=== PATIENT | female | born 1955 | race Caucasian/White ===

== ENCOUNTER 2020-11-03 23:18 | Observation (INO) | payer OTHER, SELFPAY ==
--- NOTE | 2020-11-03 23:30 | XRR_ITS ---
PROCEDURE INFORMATION: Exam: XR Chest Exam date and time: 11/03/2020 11:37 PM Age: 65 years old Clinical indication: Type not specified; Patient HX: Chest pain radiating to left shoulder x 3 days; Additional info: Cp TECHNIQUE: Imaging protocol: XR of the chest Views: 1 view. COMPARISON: No relevant prior studies available. FINDINGS: Lungs: Unremarkable. No consolidation. Pleural spaces: Unremarkable. No pleural effusion. No pneumothorax. Heart/Mediastinum: Mildly enlarged heart. Bones/joints: Degenerative changes of the spine seen. XR/XR chest 1V portable [id number] IMPRESSION: No acute findings.
--- NOTE | 2020-11-03 23:30 | ECG_ITS ---
[facility] Test Date: 2020-11-03 Pat Name: Lara Brown Department: Room: Gender: Female Clinical Staff Educator: : 1955 Requested By: Dieudonne Atwood Order Number: [id number] Pattie MD: Diego Martino M.D. Measurements Intervals [place] Rate: 71 P: 67 MT: 163 QRS: 73 QRSD: 91 T: 22 QT: 377 QTc: 410 Interpretive Statements SINUS RHYTHM POSSIBLE LEFT ATRIAL ENLARGEMENT [-0.1mV P WAVE IN V1/V2] NONSPECIFIC ST & T-WAVE ABNORMALITY No previous ECG available for comparison Electronically Signed On 11-04-2020 18:54:17 POLITICAL SCIENCE INSTRUCTOR by Diego Martino M.D. [id number]
[2020-11-03 23:32] VITALS: BP 163/99; PULSE 71; RESP 17; TEMP 36.6; O2SAT 96; BMI 33.0
--- NOTE | 2020-11-03 23:34 | PC.NURSE ---
EKG taken and given to ED physician
[2020-11-03 23:42] VITALS: PULSE 74; RESP 24; O2SAT 96
[2020-11-03 23:45] LABS: Basophils % 0.3 %; Eosinophils # 0.1 10^3/uL (0.0-0.8); Eosinophils % 1.5 %; Hematocrit 39.8 % (37.0-47.0); Hemoglobin 12.7 g/dL (11.5-15.3); Lymphocytes # 1.6 10^3/uL (0.8-4.8); Lymphocytes % 26.7 %; Mean Corpuscular HGB Conc 31.9 g/dL (30.0-36.0); Mean Corpuscular Hemoglobin 29.1 pg (28.0-34.0); Mean Corpuscular Volume 91.3 fL (81-99); Mean Platelet Volume 10.1 fL (7.4-10.4); Monocytes # 0.5 10^3/uL (0.2-0.9); Monocytes % 7.9 %; Neutrophils # 3.81 10^3/uL (1.8-7.7); Neutrophils % 63.1 %; Nucleated Red Blood Cells % 0 %; Platelet Count 206 10^3/cmm (130-400); Red Blood Count 4.36 10^6/uL (4.1-5.3)
[2020-11-03 23:56] LABS: INR 0.91 (0.8-1.2)
[2020-11-03 23:59] LABS: D Dimer 0.34 ug/mIFEU (0-0.59)
[2020-11-04] VITALS (87 sets, daily range): BP systolic 92–196; BP diastolic 53–96; PULSE 57–85; RESP 14–23; TEMP 36.7–37.3; O2SAT 91–99
--- NOTE | 2020-11-04 | XACV_ITS ---
Exam Room: [facility] Ht: 168 cm Wt: 92 kg BSA: 2.10 m2 Gender: Female : 1955 Exam Priority: Routine Procedure(s): Procedure Description: Diagnostic procedure Procedure Description: Left Heart Catheterization Diagnostic Cath Status: Elective Diagnostic Findings * LM has 0% stenosis. * LAD has 0% stenosis. * CX has 0% stenosis. * pRCA: Moderate 50% stenosis, MENDY: 3 flow. * Distal Right Coronary Artery: Severe 90% stenosis, MENDY: 3 flow. * Coronary angiography shows right dominance. PCI Status: Urgent PCI Indication: NSTE - ACS Interventional Findings * Successful PCI to distal RCA. Lesion was treated by deployment of TROY INTEGRITY 3.0 x 15 mm stent posted at high MAGALI. Stent was then post-dilated with NC EUPHORA 3.5 x 12 in its entire length to ensure proper approximation. Wire was then withdrawn across into PLV branch which is jailed with the stent. AB trek 2.0 x 8 mm balloon was inflated to flared the stent struts, excellent angiographic result with MENDY-3 flow was achieved.. * Distal Right Coronary Artery: 90% stenosis treated with MDT R TROY 3.0X15 PRATIMA, MDT NC EUPHORA RX [id number] BALLOON, and AB MINI TREK 2.00X8 RX BALLOON. 0% residual stenosis, MENDY: 3 flow. Conclusions 1. There is severe coronary artery disease with one vessel disease. 2. Distal Right Coronary Artery was treated with Drug Eluting Stent and two Balloon. Recommendations * 1-Return to inpatient for close monitoring and routine cath care 2-Risk factor modification for secondary prevention 3-Statin and aspirin 81 mg life--long, if tolerated 4-Patient was pre-loaded with 600 mg of Plavix, continue Plavix 75mg p.o. daily for at least one year. We will assess at the end of one year again to continue if further or not 5-Continue optimal medical management 6-Follow up with Dr. Arias in four weeks and your primary care in 10 days. Interventional RX Recommendation: PCI w/o planned CABG Diagnostic RX Recommendation: PCI w/o planned CABG Clinical Evaluation EBL: 5mL-10mL Procedural Details Procedure Consent Obtained. Admit Source: In Patient. Pre-Procedure Time Out. Identified patient by full name and date of as verbalized by the patient/guarantor. Does the consent match the physician's order: Yes. Accurate & Complete Informed Consent: Yes. Inpatient/Outpatient History & Physical on Chart: Yes. If H&P is completed, is and addenduem needed: N/A; If yes, is the addendum complete: N/A. Visualize and Verify Site with Patient/Guarantor: N/A. Relevant Radiology Images available: N/A. Pre-op teaching completed and patient verbalized understanding. The risks, benefits, and alternatives of sedation and/or procedure were discussed by physician. The patient agrees to continue. Procedure started. Correct patient, site and procedure confirmed by cath team. PERRLA. Strong, equal hand eligibility clerk bilaterally. Lungs clear x 5 lobes. IV Site on Arrival: 20 gauge in the right anticubital. Oxygen started at 2liters/min via nasal canula. bilateral groins was prepped with chloroprep then draped in the usual sterile fashion. right radial was prepped with chloroprep then draped in the usual sterile fashion. Physician notified. Baseline sample Acquired. HR: 82 BPM. Physician arrived. Physician scrubbed in. Immediate Pre-Procedure Time Out. Correct Patient: Yes; Correct Procedure: Yes; Correct Site: Yes; Correct Patient Position: Yes; Correct Supplies: Yes; Dried Flammable Prep: Yes; Blood Products Available: N/A;. Lidocaine 1% infiltrated to the right radial. Arterial access obtained. A 6 german TIG catheter in over wire. Multiple views taken of left coronary artery. Catheter out. 6 german JR 4 guide catheter was inserted over the wire. Multiple views taken of right coronary artery. [place] guidewire was advanced through the guide catheter to lesion in the distal RCA. Inflation Number : 1 Truong Aranda TROY 3.0X15 PRATIMA -Lot Number#[id number] exp date: 07-13-2022 was prepped and advanced across the Dist RCA. The stent was deployed at 16 MAGALI for 0:21 seconds. Inflation number : 2 A NEAL DONALD EUPHORA RX [id number] BALLOON was prepped and advanced across the Dist RCA , then inflated to 14 MAGALI for 0:20 seconds. Results checked. Inflation number : 3 A AB MINI TREK 2.00X8 RX BALLOON was prepped and advanced across the Dist RCA , then inflated to 10 MAGALI for 0:18 seconds. Balloon and wire out. TR band placed. Hemostasis obtained. Post Procedure: Pulses reassessed and unchanged. PERRLA. Strong, equal hand eligibility clerk bilaterally. No VTE prophylaxis required. Medication's Wasted: Other = fentanyl 50 mg. Medication's Wasted: Nitro = 49.6 mg. Medication's Wasted: Lidocaine 1% = 16 mL. Medication's Wasted: Heparin = 2000 units. Medication's Wasted: Other = versed 1 mg. Total IV fluids: 150 mL. Contrast type used: Omnipaque 300 mgI/mL, 500 mL bottle. Contrast Material : Omnipaque 146 ml. A TR Band was successful obtaining hemostatsis at the Right Radial artery insertion site. ACT drawn. Results 289 seconds. Therapeutic limits - pre-heparin administration 90-150 seconds and monitoring heparin during a vascular procedure >250 seconds. [facility] Clinical Fraility Score: 3: Managing Well. Patient Service Technician Pst Indications: ACS <= 24 hours. Chest Pain Symptom Assessment: Typical Angina Symptoms. Cardiovascular Instability: No,. PCI Indication: distal RCA stent. Post-op diagnosis: Stent to distal RCA. Complications: none. Estimated blood loss: 5mL-10mL. Procedure completed. Patient transferred by bed to 1st floor. Vital chart was stopped. Access Site Site: Right Radial artery Sheath Size: 6 Fr Hemostasis Method: TR Band Hemostasis Success: Successful Procedure Medications Start: 4:33 PM Stop: 4:33 PM Medication: Fentanyl Amount: 50 mcg Route: I.V. Start: 4:37 PM Stop: 4:37 PM Medication: Benadryl Amount: 50 mg Route: I.V. Start: 4:55 PM Stop: 4:55 PM Medication: Fentanyl Amount: 50 mcg Route: I.V. Start: 4:59 PM Stop: 4:59 PM Medication: Versed Amount: 1 mg Route: I.V. Start: 5:02 PM Stop: 5:02 PM Medication: Nitrogylcerin Amount: 200 mcg Route: I.A. Start: 5:04 PM Stop: 5:04 PM Medication: Versed Amount: 1 mg Route: I.V. Start: 5:05 PM Stop: 5:05 PM Medication: Heparin Amount: 5000 units Route: I.V. Start: 5:10 PM Stop: 5:10 PM Medication: Fentanyl Amount: 50 mcg Route: I.V. Start: 5:12 PM Stop: 5:12 PM Medication: Versed Amount: 1 mg Route: I.V. Start: 5:14 PM Stop: 5:14 PM Medication: Heparin Amount: 4000 units Route: I.V. Start: 5:24 PM Stop: 5:24 PM Medication: Nitrogylcerin Amount: 200 mcg Route: I.C. Start: 5:25 PM Stop: 5:25 PM Medication: Versed Amount: 1 mg Route: I.V. Start: 5:29 PM Stop: 5:29 PM Medication: Nitrogylcerin Amount: 200 mcg Route: I.A. I, the attending physician, have reviewed and verified all procedure medications. Yes, all medications given per verbal order Report Signatures Finalized by Richa Arias MD on 11/15/2020 08:39 PM
[2020-11-04 00:04] LABS: Troponin(5th) Baseline 31 ng/L (0-10)
[2020-11-04 00:21] LABS: Alanine Aminotransferase 19 U/L (0-33); Alkaline Phosphatase 76 IU/L (35-105); Anion Gap 12.3 (5-19); Aspartate Amino Transferase 16 U/L (0-32); Blood Urea Nitrogen 18 mg/dL (8-23); Calcium 8.7 mg/dL (8.5-10.5); Carbon Dioxide 26 mmol/L (22-29); Chloride 105 mmol/L (98-107); Creatine Phosphokinase 189 U/L (26-192); Globulin 2.3 g/dL (1.3-4.6); Glucose 138 mg/dL (65-115); Magnesium 2.1 mg/dL (1.7-2.3); NT Pro B Type Natriuretic Pept 161 pg/mL (0-125); Osmolality Calculated 292 mOsm/kg (285-295); Potassium 4.3 mmol/L (3.5-5.1); Sodium 139 mmol/L (136-145); Total Bilirubin 0.2 mg/dL (0.15-1.2); Total Protein 6.3 g/dL (6.6-8.7)
--- NOTE | 2020-11-04 00:21 | ED_ITS ---
HPI - Chest Pain General: Chief Complaint: Chest Pain Stated Complaint: CHEST PAIN X3 DAYS Time Seen by Provider: 11/03/20 23:19 History of Present Illness: HPI narrative: 65-year-old lady with no prior history of heart disease. She has no diabetes or hypertension that she knows of. She reports chest discomfort on and off for the last 3 days. Around 10 PM, she had pain that woke her from sleep. It radiated into her left shoulder. She drove herself to the ambulance she had, where an EKG was performed. On subsequent EKGs, she had a bigeminy type rhythm when she was symptomatic. Her pain improved, is essentially resolved now she denies any cough, significant shortness of breath, diaphoresis. She did complain of nausea when she was having pain. MD complaint: chest pain Onset (ago): day(s) Timing of current episode: episodic and now resolved Prior episodes: Yes Onset: during rest and awoke with symptoms Pain location: substernal and left chest Pain radiation: left shoulder Severity: moderate Quality: tightness and aching Exacerbating factors: nothing Associated symptoms: Reports nausea; Deny abdominal pain, diaphoresis, dyspnea, fever(s), leg edema, syncope or vomiting Treatment prior to arrival: aspirin Review of Systems Const: Denies: diaphoresis Eyes: Denies: change in vision ENMT: Denies: throat pain Card: Reports: chest pain; Denies: edema or syncope Resp: Denies: dyspnea GI: Reports: nausea; Denies: abdominal pain or vomiting Neuro: Denies: headache(s) Psych: Denies: anxiety Physical Exam Const: GENERAL APPEARANCE: well developed ORIENTATION/CONSCIOUSNESS: Yes oriented to person, Yes oriented to place and Yes oriented to time HENMT: COMMON NORMALS: normocephalic, external ears normal and Normal external nose present HEAD & SCALP: normocephalic FACE & SINUS: normal facial exam NOSE: Normal external nose present and No nasal discharge present EXTERNAL EAR: Yes external ears normal Eye: COMMON NORMALS: Equal, round and reactive pupils present, EOMs intact bilaterally and conjunctivae normal EYELID: eyelids normal CONJUNCTIVA: Yes conjunctivae normal PUPIL: Yes Equal, round and reactive pupils present Neck/C-Spine: GENERAL: No tracheal deviation Chest: COMMONS NORMALS: normal inspection of the chest CHEST: No tenderness Resp: COMMON NORMALS: clear to auscultation bilaterally EFFORT & INSPECTION: No tachypneic, No respiratory distress, No retractions, No uses accessory muscles and No tracheal deviation AUSCULTATION: clear to auscultation bilaterally, no rhonchi, no wheezes and lung sounds not diminished Cardio: COMMON NORMALS: regular rate and regular rhythm RATE: regular rate RHYTHM: regular rhythm HEART SOUNDS: no murmurs PERIPHERAL PULSES: radial pulses present GI: INSPECTION: No abdominal distension AUSCULTATION: No Hyperactive bowel sounds present and No Hypoactive bowel sounds present PALPATION: No Guarding due to palpation present (GI) and No Rigid due to palpation PERCUSSION: no dullness to percussion and no tympanic to percussion Neuro: SENSORIUM/ORIENTATION: Yes oriented to person, Yes oriented to place and Yes oriented to time Psych: COMMON NORMALS: mental status grossly normal Skin: COMMON NORMALS: no rashes or lesions noted GENERAL SKIN EXAM: no rashes or lesions noted Course Vital Signs: Vital signs: Vital Signs Temperature 97.8 F 11/03/20 23:32 Pulse Rate 68 11/04/20 02:47 Respiratory Rate 23 H 11/04/20 02:47 Blood Pressure 148/77 11/04/20 02:47 Pulse Oximetry 97 11/04/20 02:47 MDM - Chest Pain MDM Narrative: Medical decision making narrative: 5-year-old female with chest discomfort. Pain is resolved at this point. EKG showed a sinus rhythm with a rate of 70. Intervals are normal. No acute ST changes. Hemoglobin 12.7. Creatinine is 1.1. First troponin was 23. Her second was 54. Significant delta at 2 hours. She has gotten aspirin in route. She is getting Plavix and Lovenox here. She will go to [facility] for chest pain with likely non-STEMI. Lab Data: Labs: Lab Results 11/03/20 11/03/20 11/03/20 Range/Units 23:40 23:40 23:40 WBC 6.0 (4.0-10.0) 10^3/ uL RBC 4.36 (4.1-5.3) 10^6/u L Hgb 12.7 (11.5-15.3) g/dL Hct 39.8 (37.0-47.0) % MCV 91.3 (81-99) fL MCH 29.1 (28.0-34.0) pg MCHC 31.9 (30.0-36.0) g/dL RDW 13.0 (12.1-15.1) % Plt Count 206 (130-400) 10^3/c mm MPV 10.1 (7.4-10.4) fL Neut % (Auto) 63.1 % Lymph % (Auto) 26.7 % [place] % (Auto) 7.9 % Eos % (Auto) 1.5 % Baso % (Auto) 0.3 % Neut # (Auto) 3.81 (1.8-7.7) 10^3/u L Lymph # (Auto) 1.6 (0.8-4.8) 10^3/u L [place] # (Auto) 0.5 (0.2-0.9) 10^3/u L Eos # (Auto) 0.1 (0.0-0.8) 10^3/u L Baso # (Auto) 0.0 (0.0-0.1) 10^3/u L Nucleated RBC % (a uto) 0 % Nucleated RBCs # 0.0 /100WBC PT 12.50 (12.1-14.9) SECO NDS INR 0.91 (0.8-1.2) APTT 25.0 (23.9-36.7) SECO NDS D-Dimer 0.34 (0-0.59) ug/mIFE U Sodium 139 (136-145) mmol/L Potassium 4.3 (3.5-5.1) mmol/L Chloride 105 (98-107) mmol/L Carbon Dioxide 26 (22-29) mmol/L Anion Gap 12.3 (5-19) BUN 18 (8-23) mg/dL Creatinine 1.1 H (0.5-0.9) mg/dL GFR Calculation 50.0 L (90-130) mL/min Glucose 138 H (65-115) mg/dL Calculated Osmolal ity 292 (285-295) mOsm/k g Calcium 8.7 (8.5-10.5) mg/dL Magnesium 2.1 (1.7-2.3) mg/dL Total Bilirubin 0.2 (0.15-1.2) mg/dL AST 16 (0-32) U/L ALT 19 (0-33) U/L Alkaline Phosphata se 76 (35-105) IU/L Creatine Kinase 189 (26-192) U/L Troponin T Baselin e (0-10) ng/L Troponin T 120 Min estuardo (0-10) ng/L Delta Troponin T (0-10) ABS# NT-Pro-B Natriuret Pep 161 H (0-125) pg/mL Total Protein 6.3 L (6.6-8.7) g/dL Albumin 4.0 (3.5-5.2) g/dL Globulin 2.3 (1.3-4.6) g/dL 11/03/20 11/04/20 Range/Units 23:40 01:44 WBC (4.0-10.0) 10^3/ uL RBC (4.1-5.3) 10^6/u L Hgb (11.5-15.3) g/dL Hct (37.0-47.0) % MCV (81-99) fL MCH (28.0-34.0) pg MCHC (30.0-36.0) g/dL RDW (12.1-15.1) % Plt Count (130-400) 10^3/c mm MPV (7.4-10.4) fL Neut % (Auto) % Lymph % (Auto) % [place] % (Auto) % Eos % (Auto) % Baso % (Auto) % Neut # (Auto) (1.8-7.7) 10^3/u L Lymph # (Auto) (0.8-4.8) 10^3/u L [place] # (Auto) (0.2-0.9) 10^3/u L Eos # (Auto) (0.0-0.8) 10^3/u L Baso # (Auto) (0.0-0.1) 10^3/u L Nucleated RBC % (a uto) % Nucleated RBCs # /100WBC PT (12.1-14.9) SECO NDS INR (0.8-1.2) APTT (23.9-36.7) SECO NDS D-Dimer (0-0.59) ug/mIFE U Sodium (136-145) mmol/L Potassium (3.5-5.1) mmol/L Chloride (98-107) mmol/L Carbon Dioxide (22-29) mmol/L Anion Gap (5-19) BUN (8-23) mg/dL Creatinine (0.5-0.9) mg/dL GFR Calculation (90-130) mL/min Glucose (65-115) mg/dL Calculated Osmolal ity (285-295) mOsm/k g Calcium (8.5-10.5) mg/dL Magnesium (1.7-2.3) mg/dL Total Bilirubin (0.15-1.2) mg/dL AST (0-32) U/L ALT (0-33) U/L Alkaline Phosphata se (35-105) IU/L Creatine Kinase (26-192) U/L Troponin T Baselin e 31 H (0-10) ng/L Troponin T 120 Min estuardo 53.74 H (0-10) ng/L Delta Troponin T 22.74 H* (0-10) ABS# NT-Pro-B Natriuret Pep (0-125) pg/mL Total Protein (6.6-8.7) g/dL Albumin (3.5-5.2) g/dL Globulin (1.3-4.6) g/dL Discharge Plan Discharge Patient Disposition: Admitted As Inpatient Clinical Impression: Non-STEMI (non-ST elevated myocardial infarction) Chest pain Qualifiers: Chest pain type: precordial pain Qualified Code(s): R07.2 - Precordial pain Condition: Stable Coding Level of Care Code ED Outside Dealer Sales Representative for Angelita Fwd Exam Comprehensive
[2020-11-04 02:15] LABS: Troponin 5 2HR 53.74 ng/L (0-10)
[2020-11-04 02:18] LABS: Troponin 5 2HR Delta 22.74 ABS# (0-10)
[2020-11-04] MEDS: enoxaparin 100 mg/mL Syringe 90 MG SUBCUT (02:50)
[2020-11-04] MEDS: clopidogrel 300 mg Tablet PO (02:52)
--- NOTE | 2020-11-04 03:00 | PM.HP ---
Providers/Chief Complaint Primary Care Provider: Gwendolyn Lake APN Chief Complaint: CHEST PAIN X3 DAYS History of Present Illness Lara Brown is a 65 year old female who does not have significant past medical history presented today with chief complaint of chest pain. Patient stating that for last 3 to 4 days she has been feeling on and off chest discomfort which she describing as burning sensation. Has not noticed any real aggravating or relieving factors, she went to bed tonight and because of this discomfort she woke up and decided to come to the hospital for further evaluation. She describing the discomfort as pressure with burning sensation substernally which is radiating towards her left shoulder, not associated with nausea, vomiting, diaphoresis, fever, shortness of breath orthopnea or PND. She does not take any medications at home no previous history of CHF coronary disease GA or stroke. Diagnostics in the ER revealed hypertension, normal CBC, mild ROLF, significant delta troponin EKG showing T wave inversion lead III and aVF otherwise sinus rhythm with multiple PVCs Chest x-ray unremarkable No active chest pain at the time of my evaluation patient was saturating well on room air. 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 Review of Systems Const: Denies: fever(s) Eyes: Denies: change in vision ENMT: Denies: throat pain Card: Reports: chest pain Resp: Denies: dyspnea GI: Denies: abdominal pain : Denies: flank pain Musc: Denies: neck pain Skin/Breast: Denies: rash Neuro: Denies: headache(s) Psych: Denies: anxiety Endo: Denies: polyuria Garry/Lymph: Denies: easy bruising All/Imm: Denies: urticaria Medications/Allergies Home Medications Medication Instructions Recorded Confirmed Last Taken Type No Known Home Medications 11/03/20 11/03/20 Unknown History Allergies Allergy/AdvReac Type Severity Reaction Status Date / Time No Known Allergies Allergy Verified 11/03/20 23:41 PFSH Acute PFSH: Medical History (Updated 11/04/20 @ 03:24 by Richa Paredes MD) No pertinent past medical history Surgical History (Updated 11/04/20 @ 03:24 by Richa Paredes MD) No pertinent past surgical history Family History (Updated 11/04/20 @ 03:24 by Richa Paredes MD) Other Family history non-contributory Social History (Updated 11/04/20 @ 03:25 by Richa Paredes MD) Smoking and tobacco status: former smoker Alcohol intake: never Substance/Drug Use: never Lives independently: Yes Housing: House Marital status: / Vitals/I&O/Wt Last Vital Signs Temp 97.8 F 11/03/20 23:32 Pulse 68 11/04/20 02:47 Resp 23 H 11/04/20 02:47 BP 148/77 11/04/20 02:47 Pulse Ox 97 11/04/20 02:47 Weight last 48 hrs Weight 92.986 kg Physical Exam Narrative: EXAM NARRATIVE: Very pleasant middle-aged female Currently saturating well on room air no active chest pain Appears stated age well-hydrated No signs of heart failure S1, S2 sinus rhythm Hypertensive 142 systolic blood pressure Abdomen soft nontender Bilateral breath sounds without acute audible wheezing or rhonchi Lower symmetry no edema gangrene ulcer Appropriate mood and affect No joint pain or cellulitis of skin EOMI, PERRLA No neurological deficit Data : 11/03/20 23:40 11/03/20 23:40 A&P Assessment and plan (1) Non-STEMI (non-ST elevated myocardial infarction): Unstable angina with NSTEMI Evaluation lead III aVF currently chest pain-free with normal hemodynamics Start ACS protocol Therapeutic dose of Lovenox started in the ER Echo in the morning She will need an angiogram, kindly consult cardiology in the morning Status: Acute (2) ROLF (acute kidney injury): Mild ROLF, chest x-ray shows mild vascular congestion clinically she looks euvolemic I would avoid getting Lasix on board for now we will wait for echo No signs of UTI We will start low-dose lisinopril for ACS Status: Acute Additional A&P Information Cardiac diet DVT prophylaxis not indicated currently therapeutic Lovenox Full code Attestations Medical Necessity Statement*: Anticipating stay in the hospital cross more than 2 midnights currently on NSTEMI/ACS protocol Time Spent in Patient Care: (>than 50% of time spent in counselling and/or direct pt care on unit). 35mins Coding Level of Care Code Acute Assistant Gm Of Content & Delivery for Chg Fwd Diagnoses Non-STEMI (non-ST elevated myocardial infarction) I21.4 ROLF (acute kidney injury) N17.9
--- NOTE | 2020-11-04 04:00 | USCV_ITS ---
Lara Brown Age: 65 Gender: F : 1955 Exam Date: 11/04/2020 06:13 Ordering Phys: Richa Paredes MD Technologist: Mitchell Payne Exam Location: [facility] Indication: CHEST PAIN BP: 140 / 60 HR: 70 Rhythm: Sinus Technical Quality: Good MEASUREMENTS (Male / Female) Normal Values 2D ECHO LV Diastolic Diameter PLAX 4.4 cm 4.2 - 5.9 / 3.9 - 5.3 cm LV Systolic Diameter PLAX 2.3 cm IVS Diastolic Thickness 1.0 cm 0.6 - 1.0 / 0.6 - 0.9 cm IVS Systolic Thickness 1.8 cm LVPW Diastolic Thickness 1.1 cm 0.6 - 1.0 / 0.6 - 0.9 cm LVPW Systolic Thickness 1.8 cm LVOT Diameter 2.0 cm LV Ejection Fraction 2D Teich 81.0 % LV Ejection Fraction MOD 2C 70.8 % LV Ejection Fraction 2C AL 71.4 % LA Diameter 3.3 cm LA Width 4.1 cm LA Height 5.1 cm RA Width 3.0 cm RA Height 3.7 cm M-MODE LV Diastolic Diameter MM 4.6 cm 4.2 - 5.9 / 3.9 - 5.3 cm LV Systolic Diameter MM 3.4 cm LV Ejection Fraction MM Teich 53.6 % IVS Diastolic Thickness MM 0.9 cm 0.6 - 1.0 / 0.6 - 0.9 cm IVS Systolic Thickness MM 1.6 cm LVPW Diastolic Thickness MM 1.1 cm 0.6 - 1.0 / 0.6 - 0.9 cm LVPW Systolic Thickness MM 1.8 cm RV Diastolic Diameter MM 0.3 cm Aortic Annulus Diameter 3.0 cm LA Ao Ratio MM 1.4 MV E Point Septal Separation 0.7 cm DOPPLER AV Peak Velocity 178.3 cm/s LVOT Peak Velocity 117.0 cm/s AV Area Cont Eq vti 2.0 cm squared AV Area Cont Eq pk 2.1 cm squared MV Area PHT 5.0 cm squared Mitral E to A Ratio 0.9 MV E' Velocity 63.0 cm/s Mitral E to MV E' Ratio 10.8 Mitral E to LV E' Lateral Ratio 10.9 Mitral E to LV E' Septal Ratio 10.7 TR Peak Velocity 246.3 cm/s TR Peak Gradient 24.3 mmHg TV Peak E Velocity 79.0 cm/s Right Atrial Pressure 3.0 mmHg Pulmonary Artery Systolic Pressu 27.3 mmHg PV Peak Velocity 91.0 cm/s FINDINGS Left Ventricle Normal left ventricular cavity size. Normal left ventricular systolic function. No regional wall motion abnormalities. Left ventricular ejection fraction is estimated at 70 %. Grade I/IV diastolic dysfunction (abnormal relaxation filling pattern), normal to mildly elevated filling pressures. Right Ventricle The right ventricle is normal in size and function. Right Atrium The right atrium is normal in size. Left Atrium The left atrium is normal in size. Mitral Valve Moderately thickened mitral valve. Mildly thickened mitral valve. Moderate mitral annular calcification. No mitral valve stenosis. No mitral valve regurgitation. Aortic Valve Structurally normal aortic valve without significant sclerosis or stenosis. There is no aortic regurgitation. Tricuspid Valve Structurally normal tricuspid valve without significant stenosis or regurgitation. Pulmonary artery systolic pressure is normal. Pulmonic Valve Structurally normal pulmonic valve without significant stenosis. There is no pulmonic regurgitation. Pericardium Normal pericardium without effusion. Aorta Normal ascending aorta dimension. CONCLUSIONS 1-Normal left ventricular cavity size. Normal left ventricular systolic function. No regional wall motion abnormalities. Left ventricular ejection fraction is estimated at 70 %. Grade I/IV diastolic dysfunction (abnormal relaxation filling pattern), normal to mildly elevated filling pressures. 2-No significant valve abnormalities. 3-There is no pericardial effusion. 4-Pulmonary artery systolic pressure is within normal limits. 5-Right atrial pressure is around 5 mm of mercury. 6-There are no prior echocardiogram studies to compare. Richa Arias MD (Electronically Signed) Final Date: 04 November 2020 19:58 S
[2020-11-04 06:07] LABS: Cholesterol 238 mg/dL (0-200); HDL Cholesterol 58 mg/dL (60-100); LDL Cholesterol Calculated 144 mg/dL (50-129); Triglycerides 179 mg/dL (0-150); VLDL Cholestrol Calculation 36 mg/dL (0-30)
[2020-11-04 06:13] LABS: Thyroid Stimulating Hormone 2.81 uIU/mL (0.27-4.20)
[2020-11-04 06:24] LABS: D Dimer 0.42 ug/mIFEU (0-0.59)
[2020-11-04 09:19] LABS: Troponin T (5th) Once 90 ng/L (0-10)
--- NOTE | 2020-11-04 09:26 | PC.CHAP ---
Pastoral Care Encounter/Spiritual Assessment Type of Contact [] Declined chief of harbor patrol visit [] Patient/Family/Request visit [] Outpatient visit [] Follow-up visit [] Physician referral [] Code/Alert [x] Routine visit [] Staff referral [] Actively dying [] Patient sleeping [] Family support [] [] Out of room [] Palliative care [] [] Receiving care in room [] Pre-surgical visit [] Trauma [] Long length of stay [] ICU visit [] Other: Relational/Emotional Strength [] Patient feels connected with others/family/visitors/staff [] Distress [] Loneliness/isolation [] Abandonment Spirituality of Patient [] Person of Carolyn [] Attends Congregational of their Carolyn [] Believes in Prayer [] Reads Bible or Rastafarian materials [] There are Spiritual issues to be addressed Senior Portfolio Analyst Interventions [x] Prayer [x] Active listening [x] Non-anxious presence [x] Spiritual/emotional support [] Crisis/trauma care [] Spiritual counseling [] Bereavement support [] Provided bereavement packet [] Provided Bible/devotional materials [] Provided toy/stuffed animal, coloring book to patient or family member [] Provided Communion [] Anointing/[place] [] Salvation [x] Completed spiritual assessment [] Other: Impact on Illness or Injury [] Angry [] Fearful [] Anxious [] Often cries [] Exhaustion [] Unable to work [] Unable to attend yarsani [] Unable to walk/stand [] Unable to read [] Unable to drive [] Unable to eat/drink [] Unable to sleep [] Unable to be with family [] Patient intubated [] Other: Summary patient feeling much better... release from pain Time spent with patient 10 min
--- NOTE | 2020-11-04 09:38 | P.CONIM_ITS ---
Providers/Reason For Consult Consulting Physican/Specialty*: Cardiology Reason for Consult*: Non-ST elevation NV Attending Physician: Yogesh Armstrong MD Primary Care Provider: Gwendolyn Lake APN History of Present Illness History of Present Illness Lara Brown is a 65 year old female past medical history significant for hypertension hyperlipidemia tobacco abuse quit 1 year ago for the last few days was noticing off-and-on chest pain yesterday she woke up from the sleep with chest pain, she decided to come to the ER she was admitted for abnormal cardiac markers and ruled in overnight. She was loaded with Plavix last night. Patient has inverted T wave in the inferior leads suggestive of possible ischemia. Patient responded to nitroglycerin however delta troponin remains abnormal. We will therefore proceed with left heart cath patient has been explained all risk benefit and alternative for the procedure including bleeding stroke arrhythmia and worse case scenario . She has been explained risk for urgent emergent bypass. She would like to proceed with it. Review of Systems Const: Denies: fever(s) or diaphoresis Eyes: Denies: change in vision ENMT: Denies: throat pain Card: Reports: chest pain; Denies: edema or syncope Resp: Denies: dyspnea GI: Reports: nausea; Denies: abdominal pain or vomiting : Denies: flank pain Musc: Denies: neck pain Skin/Breast: Denies: rash Neuro: Denies: headache(s) Psych: Denies: anxiety Endo: Denies: polyuria Garry/Lymph: Denies: easy bruising All/Imm: Denies: urticaria Meds/Allergies Home Medications and Allergies Home Medications Medication Instructions Recorded Confirmed Last Taken Type No Known Home Medications 11/03/20 11/03/20 Unknown History Allergies Allergy/AdvReac Type Severity Reaction Status Date / Time No Known Allergies Allergy Verified 11/03/20 23:41 PFSH Acute PFSH: Medical History (Updated 11/04/20 @ 03:24 by Richa Paredes MD) No pertinent past medical history Surgical History (Updated 11/04/20 @ 03:24 by Richa Paredes MD) No pertinent past surgical history Family History (Updated 11/04/20 @ 03:24 by Richa Paredes MD) Other Family history non-contributory Social History (Updated 11/04/20 @ 03:25 by Richa Paredes MD) Smoking and tobacco status: former smoker Alcohol intake: never Substance/Drug Use: never Lives independently: Yes Housing: House Marital status: / Vitals/I&O/Wt Last Vital Signs Temp 98.9 F 11/04/20 09:06 Pulse 78 11/04/20 08:50 Resp 16 11/04/20 08:50 BP 154/64 11/04/20 08:50 Pulse Ox 98 11/04/20 08:50 11/03/20 11/04/20 11/04/20 22:59 06:59 14:59 Intake Total 100 / 100 140 / 140 Balance 100 / 100 140 / 140 Weight last 48 hrs Weight 203 lb 3.2 oz Weight 205 lb Physical Exam Narrative: EXAM NARRATIVE: GENERAL: Patient is alert, awake and oriented x3. NECK: No jugular vein distension. HEENT: No cyanosis. No icterus. No pallor. HEART: Regular S1 and S2. No murmur, rub or gallop. LUNGS: Clear to auscultate bilaterally. ABDOMEN: Soft, nontender and nondistended. Positive bowel sounds. No guarding, rebound or tenderness. CENTRAL NERVOUS SYSTEM: Grossly nonfocal. EXTREMITIES: Lower extremities without edema bilaterally. A&P Assessment and plan (1) Non-STEMI (non-ST elevated myocardial infarction): We will proceed with left heart cath and PCI if indicated. Patient has been loaded with clopidogrel aspirin statin. Add a statin. Status: Acute (2) ROLF (acute kidney injury): Improved. Status: Acute Coding Level of Care Code New Pt Acute Environmental Studies Department Chair for [facility] Fwalejandro Patient Type New History Detailed Exam Detailed Medical Decision Making Moderate Complexity Diagnoses Non-STEMI (non-ST elevated myocardial infarction) I21.4 ROLF (acute kidney injury) N17.9
[2020-11-04] MEDS: aspirin 81 mg EC Tablet PO (09:43)
[2020-11-04] MEDS: clopidogrel 75 mg Tablet PO (09:43)
[2020-11-04] MEDS: atorvastatin 40 mg Tablet 80 MG PO (09:43)
[2020-11-04] MEDS: lisinopril 5 mg Tablet PO (09:43)
[2020-11-04] MEDS: metoprolol succinate ER (24 HR) 25 mg Tablet 12.5 MG PO (09:43)
[2020-11-04] MEDS: sodium chloride 0.9% 1,000 ML 50 ML IV (11:07)
--- NOTE | 2020-11-04 11:40 | P.PN_ITS ---
Subjective Subjective: Interval history: Patient was examined this morning, she did not have any chest pain events overnight, no shortness of breath, no lightheaded, dizziness Vitals/I&O/Wt Last Vital Signs Temp 99.1 F 11/04/20 10:52 Pulse 78 11/04/20 08:50 Resp 16 11/04/20 08:50 BP 154/64 11/04/20 08:50 Pulse Ox 98 11/04/20 08:50 11/03/20 11/04/20 11/04/20 22:59 06:59 14:59 Intake Total 100 / 100 140 / 140 Balance 100 / 100 140 / 140 Weight last 48 hrs Weight 92.17 kg Weight 92.986 kg Physical Exam Const: COMMON NORMALS: no acute distress and patient oriented x3 HENMT: COMMON NORMALS: normocephalic HEAD & SCALP: normocephalic Neck/C-Spine: COMMON NORMALS: no JVD Resp: COMMON NORMALS: normal respiratory effort, No retractions, No use of accessory muscles and clear to auscultation bilaterally AUSCULTATION: clear to auscultation bilaterally Cardio: COMMON NORMALS: no JVD, regular rate, regular rhythm, S1 normal heart sound present and S2 normal heart sound present RATE: regular rate RHYTHM: regular rhythm HEART SOUNDS: S1 normal heart sound present and S2 normal hear t sound present GI: COMMON NORMALS: Normal to inspection, nondistended, normoactive bowel sounds present, Soft to palpation, non-tender, No hepatosplenomegaly present, no masses and no bruits PALPATION: Yes Soft to palpation and Yes No hepatosplenomegaly present Extremity: COMMON NORMALS: capillary refill normal, no clubbing, cyanosis or edema, no calf tenderness and no pedal edema Neuro: COMMON NORMALS: patient oriented x3 Psych: COMMON NORMALS: mental status grossly normal Data : 11/03/20 23:40 11/03/20 23:40 A&P Assessment and plan (1) Non-STEMI (non-ST elevated myocardial infarction): Unstable angina with NSTEMI Evaluation lead III aVF currently chest pain-free with normal hemodynamics Start ACS protocol aspirin, statin, Plavix Delta 22.74, 6-hour troponin was for some reason canceled, troponin at 8:40 AM w as 90 Therapeutic dose of Lovenox started in the ER Triglycerides 179, cholesterol 230, LDL 144, will check hemoglobin A1c Echo in the morning Cardiology consulted for the need for angiogram Status: Acute (2) ROLF (acute kidney injury): Mild ROLF, chest x-ray shows mild vascular congestion clinically she looks euvolemic I would avoid getting Lasix on board for now No signs of UTI We will start low-dose lisinopril for ACS Status: Acute Additional A&P Information Cardiac diet DVT prophylaxis not indicated currently therapeutic Lovenox Full code Attestations Medical Necessity Statement*: Patient requires hospitalization, outpatient with observation, for NSTEMI, proceeding to cardiac catheterization Coding Level of Care Code Acute Chief Communications Officer for Chg Fwd Diagnoses Non-STEMI (non-ST elevated myocardial infarction) I21.4 ROLF (acute kidney injury) N17.9
[2020-11-04 14:12] LABS: Estmated Average Glucose 111; Hemoglobin A1C 5.5 % (4.0-6.0)
[2020-11-04] MEDS: sodium chloride 0.9% 1,000 ML 100 ML IV (18:00)
--- NOTE | 2020-11-04 18:00 | PC.NURSE ---
FRom labels molder Pt is alert, oriented. TR band intact and patent. Radial pulse is palpable +3. No hematoma, swelling or bleeding noted. Activity restrictions discuss to pt. Elevated right arm with a pillow. call light within reach.
[2020-11-05] VITALS (17 sets, daily range): BP systolic 100–150; BP diastolic 60–80; PULSE 56–72; RESP 12–18; TEMP 36.6–36.7; O2SAT 80–99
[2020-11-05] MEDS: sodium chloride 0.9% 1,000 ML 100 ML IV (00:31)
--- NOTE | 2020-11-05 03:09 | PC.NURSE ---
received order from Dr Paredes to hold 0300 dose of lovenox
[2020-11-05 05:37] LABS: Alanine Aminotransferase 16 U/L (0-33); Albumin Level 3.5 g/dL (3.5-5.2); Alkaline Phosphatase 65 IU/L (35-105); Anion Gap 12.3 (5-19); Aspartate Amino Transferase 16 U/L (0-32); Blood Urea Nitrogen 16 mg/dL (8-23); Calcium 8.4 mg/dL (8.5-10.5); Carbon Dioxide 26 mmol/L (22-29); Chloride 109 mmol/L (98-107); Globulin 2.4 g/dL (1.3-4.6); Glucose 91 mg/dL (65-115); Magnesium 2.1 mg/dL (1.7-2.3); Osmolality Calculated 297 mOsm/kg (285-295); Phosphorus 3.3 mg/dL (2.5-4.5); Potassium 4.3 mmol/L (3.5-5.1); Sodium 143 mmol/L (136-145); Total Bilirubin 0.3 mg/dL (0.15-1.2); Total Protein 5.9 g/dL (6.6-8.7)
[2020-11-05 06:00] LABS: Basophils % 0.3 %; Eosinophils # 0.1 10^3/uL (0.0-0.8); Eosinophils % 1.7 %; Hematocrit 40.1 % (37.0-47.0); Hemoglobin 12.3 g/dL (11.5-15.3); Lymphocytes # 1.8 10^3/uL (0.8-4.8); Lymphocytes % 31.4 %; Mean Corpuscular HGB Conc 30.7 g/dL (30.0-36.0); Mean Corpuscular Hemoglobin 28.9 pg (28.0-34.0); Mean Corpuscular Volume 94.4 fL (81-99); Mean Platelet Volume 10.7 fL (7.4-10.4); Monocytes # 0.5 10^3/uL (0.2-0.9); Monocytes % 7.8 %; Neutrophils # 3.37 10^3/uL (1.8-7.7); Neutrophils % 58.6 %; Nucleated Red Blood Cells % 0 %; Platelet Count 193 10^3/cmm (130-400); Red Blood Count 4.25 10^6/uL (4.1-5.3); Red Cell Distribution Width 13.5 % (12.1-15.1); White Blood Count 5.8 10^3/uL (4.0-10.0)
--- NOTE | 2020-11-05 09:35 | PC.CHAP ---
Pastoral Care Encounter/Spiritual Assessment Type of Contact [] Declined veterinary inspector visit [] Patient/Family/Request visit [] Outpatient visit [] Follow-up visit [] Physician referral [] Code/Alert [x] Routine visit [] Staff referral [] Actively dying [] Patient sleeping [] Family support [] [] Out of room [] Palliative care [] [] Receiving care in room [] Pre-surgical visit [] Trauma [] Long length of stay [] ICU visit [] Other: Relational/Emotional Strength [] Patient feels connected with others/family/visitors/staff [] Distress [] Loneliness/isolation [] Abandonment Spirituality of Patient [x] Person of Carolyn [] Attends Sabianist of their Carolyn [] Believes in Prayer [] Reads Bible or Denominational materials [] There are Spiritual issues to be addressed Beater Boss Interventions [x] Prayer [x] Active listening [x] Non-anxious presence [x] Spiritual/emotional support [] Crisis/trauma care [] Spiritual counseling [] Bereavement support [] Provided bereavement packet [] Provided Bible/devotional materials [] Provided toy/stuffed animal, coloring book to patient or family member [] Provided Communion [] Anointing/[place] [] Salvation [x] Completed spiritual assessment [] Other: Impact on Illness or Injury [] Angry [] Fearful [] Anxious [] Often cries [] Exhaustion [] Unable to work [] Unable to attend alevism [] Unable to walk/stand [] Unable to read [] Unable to drive [] Unable to eat/drink [] Unable to sleep [] Unable to be with family [] Patient intubated [] Other: Summary patient and veterinary inspector praised the Lord for all He is doing in her life. Time spent with patient 10 min
[2020-11-05] MEDS: clopidogrel 75 mg Tablet PO (09:49)
[2020-11-05] MEDS: metoprolol succinate ER (24 HR) 25 mg Tablet 12.5 MG PO (09:49)
[2020-11-05] MEDS: aspirin 81 mg EC Tablet PO (09:50)
[2020-11-05] MEDS: lisinopril 5 mg Tablet PO (09:50)
[2020-11-05] MEDS: atorvastatin 40 mg Tablet 80 MG PO (09:50)
--- NOTE | 2020-11-05 10:24 | P.PN_ITS ---
Subjective Subjective: Interval history: Post PCI no overnight event Vitals/I&O/Wt Last Vital Signs Temp 98.1 F 11/05/20 06:52 Pulse 70 11/05/20 06:52 Resp 12 11/05/20 06:52 BP 142/77 11/05/20 06:52 Pulse Ox 96 11/05/20 06:52 11/04/20 11/05/20 11/05/20 22:59 06:59 14:59 Intake Total 360 / 500 2699.667 / 3199.667 120 / 120 Balance 360 / 500 2699.667 / 3199.667 120 / 120 Weight last 48 hrs Weight 203 lb 3.2 oz Weight 205 lb Physical Exam Narrative: EXAM NARRATIVE: GENERAL: Patient is alert, awake and oriented x3. NECK: No jugular vein distension. HEENT: No cyanosis. No icterus. No pallor. HEART: Regular S1 and S2. No murmur, rub or gallop. LUNGS: Clear to auscultate bilaterally. ABDOMEN: Soft, nontender and nondistended. Positive bowel sounds. No guarding, rebound or tenderness. CENTRAL NERVOUS SYSTEM: Grossly nonfocal. EXTREMITIES: Lower extremities without edema bilaterally. Data : 11/05/20 04:10 11/05/20 04:10 A&P Assessment and plan (1) Non-STEMI (non-ST elevated myocardial infarction): Status post PCI to distal RCA with single drug-eluting stent excellent angiographic result with MENDY-3 flow was achieved. Continue aspirin statin beta-benoit NADEEM inhibitor and clopidogrel. Status: Acute (2) ROLF (acute kidney injury): Improved. Status: Acute Attestations Medical Necessity Statement*: Patient can be discharged home. Follow-up with cardiology in 7 days Coding Level of Care Code Established Pt Acute Corporation Secretary for [facility]g Fwd Patient Type Established History Detailed Exam Detailed Medical Decision Making Moderate Complexity Diagnoses Non-STEMI (non-ST elevated myocardial infarction) I21.4 ROLF (acute kidney injury) N17.9
[2020-11-05] MEDS: enoxaparin 100 mg/mL Syringe 90 MG SUBCUT ×2 (14:27→14:29)
--- NOTE | 2020-11-05 15:38 | PM.DCS ---
Discharge Providers Date of Admission: 11/04/20 04:00 Date of Discharge: November 05, 2020 Attending Provider at Admission: Richa Paredes MD Attending Provider at Discharge: David Simmons MD Primary Care Provider: Gwendolyn Lake APN Diagnoses at Discharge Discharge Diagnosis (1) Non-STEMI (non-ST elevated myocardial infarction): Status: Acute (2) ROLF (acute kidney injury): Status: Acute (3) Obesity (BMI 30.0-34.9): Status: Acute Reason for Visit Reason for Visit: CHEST PAIN X3 DAYS Hospital Course Hospital Course Patient presented with non-ST elevation [place]. She underwent coronary angiography and 1 stent placement. Currently I do not have any specifics as report is not available yet. Dr. Arias was okay for patient to be dismissed and already reconciled her medications. During my evaluation patient denied any complaints including shortness of breath or chest pain. She quit smoking in May last year. We have discussed regarding importance of medical compliance and to make sure she does not skip Plavix. Patient voiced understanding. Patient to keep blood pressure and heart rate log 3 times daily to present to primary care physician next visit for medication adjustment. Physical Exam Narrative: EXAM NARRATIVE: Overall decreased air movement but otherwise clear lungs throughout. Heart is regular and lower extremities show no edema. Abdomen is soft and nontender with positive bowel sounds. Discharge Data Data Completed and Pending: Completed Studies During Hospitalization Category Date Time Status XR chest 1V alee ble [id number] Stat Exams 11/03/20 23:30 Completed CV echo complete* [id number] Routine Ultrasound 11/04/20 04:00 Completed Pending at discharge Category Date Time Status LOCOMOTIVE DRIVER request for service Routin e Exams 11/04/20 Taken Complete Blood Co unt w/Auto AM LABS Lab 11/06/20 04:00 Ordered Complete Blood Co unt w/Auto AM LABS Lab 11/07/20 04:00 Ordered Comprehensive Met abolic Panel AM LA BS Lab 11/06/20 04:00 Ordered Comprehensive Met abolic Panel AM LA BS Lab 11/07/20 04:00 Ordered Magnesium AM LABS Lab 11/06/20 04:00 Ordered Magnesium AM LABS Lab 11/07/20 04:00 Ordered Phosphorus AM LAB S Lab 11/06/20 04:00 Ordered Phosphorus AM LAB S Lab 11/07/20 04:00 Ordered Labs from last 24 hours 11/05/20 11/05/20 04:10 04:10 WBC 5.8 RBC 4.25 Hgb 12.3 Hct 40.1 MCV 94.4 MCH 28.9 MCHC 30.7 RDW 13.5 Plt Count 193 MPV 10.7 H Neut % (Auto) 58.6 Lymph % (Auto) 31.4 [place] % (Auto) 7.8 Eos % (Auto) 1.7 Baso % (Auto) 0.3 Neut # (Auto) 3.37 Lymph # (Auto) 1.8 [place] # (Auto) 0.5 Eos # (Auto) 0.1 Baso # (Auto) 0.0 Nucleated RBC % (a uto) 0 Nucleated RBCs # 0.0 Sodium 143 Potassium 4.3 Chloride 109 H Carbon Dioxide 26 Anion Gap 12.3 BUN 16 Creatinine 0.9 GFR Calculation 63.0 L Glucose 91 Calculated Osmolal ity 297 H Calcium 8.4 L Phosphorus 3.3 Magnesium 2.1 Total Bilirubin 0.3 AST 16 ALT 16 Alkaline Phosphata se 65 Total Protein 5.9 L Albumin 3.5 Globulin 2.4 Vitals: Last Vital Signs Temp 98.0 F 11/05/20 12:00 Pulse 60 11/05/20 14:00 Resp 12 11/05/20 12:00 BP 150/73 11/05/20 12:00 Pulse Ox 99 11/05/20 12:00 Discharge Plan Discharge Patient Disposition: Home Condition: Stable Prescriptions: New aspirin 81 mg Tablet,Delayed Release (Dr/Ec) 81 mg PO DAILY Qty: 90 RF: 4 clopidogrel 75 mg Tablet 75 mg PO DAILY Qty: 90 RF: 4 lisinopril 5 mg Tablet 5 mg PO DAILY Qty: 90 RF: 4 nitroglycerin 0.4 mg Tablet, Sublingual 0.4 mg sublingual Q5M PRN (Reason: Chest Pain) Qty: 25 RF: 0 atorvastatin 40 mg Tablet 80 mg PO DAILY Qty: 90 RF: 4 metoprolol succinate 25 mg Tablet Extended Release 24 Hr 12.5 mg PO DAILY Qty: 90 RF: 4 No Action No Known Home Medications RF: 0 Discharge Orders: Discharge Order (Routine); Ordered 11/05/20 Ordered By: David Simmons Referrals: Richa Arias MD [Physician] - 1 month (Please follow-up with Dr. Arias on December 12 at 1:30P.M. If you have any questions or need to reschedule. Please call ) Rox Rainey FNP [Nurse Practitioner] - 1 week (Please follow-up with Rox Rainey on November 13 at 9:00A.M. If you have any questions or need to reschedule. Please call ) Gwendolyn Lake APN [Primary Care Provider] - 4-7 days (Please follow-up with Gwendolyn Lake on November 11 at 2:30P.M. If you have any questionsor need to reschedule. Please call ) Discharge Diet: Cardiac Discharge Activity: Increase activity as tolerated Patient Instructions: Metoprolol (By mouth), Lisinopril (By mouth), Atorvastatin (By mouth), Clopidogrel (By mouth), Left Heart Catheterization (DC), Acute Kidney Injury (DC), Chest Pain Stoplight, Post Angiogram Home Care Instructions Activity Restrictions/Additional Instructions: Follow-up with Rox Rainey in 7 days follow-up with Dr. Arias in 6 to 8 weeks. Please continue clopidogrel and aspirin for at least 1 year after that we will decide to continue with further or not. Please keep blood pressure and heart rate log 3 times daily to present to your physician next visit for medication adjustment. Please make sure you do not skip Plavix even for 1 day. Please call your doctor or present to emergency department if your condition worsens or you develop diarrhea, lightheadedness, fatigue or see blood in your stool or black stool. Stand Alone Forms: Work/School Release Discharge Attestations Time Spent in Discharge Care*: greater than 30 min Quality Metrics Clinical Quality Measures During this hospital stay, did patient experience: AMI Clinical Trial Participant: No Contraindication to aspirin (AMI): Aspirin given Contraindication to statin: Statin prescribed Coding Level of Care Code Acute Digital Pre Press Operator for Chg Fwd Diagnoses Non-STEMI (non-ST elevated myocardial infarction) I21.4 ROLF (acute kidney injury) N17.9 Obesity (BMI 30.0-34.9) E66.9
--- NOTE | 2020-11-05 16:37 | PC.NURSE ---
Pt discharge home. IV removed no redness or swelling noted. Pts discharge instructions given along with prescriptions and follow up appointments. Pt had no c/o pain or discomfort at the time of discharge. Pt request to ambulate out of facility. Accompanied by family.
== END 2020-11-05 16:36 | disposition home or self-care (01) ==
LOC: ER 11-04 02:52 → CSU 11-04 07:53
PROVIDERS: Family Medicine; Internal Medicine Cardiovascular Disease; Admitting Provider Internal Medicine; Emergency Provider Emergency Medicine; PCP Nurse Practitioner Family; Visit Provider Internal Medicine
DX: I21.4 Non-ST elevation (NSTEMI) myocardial infarction (principal); N17.9 Acute kidney failure, unspecified; E66.9 Obesity, unspecified; Z68.32 Body mass index [BMI] 32.0-32.9, adult; I10 Essential (primary) hypertension; E78.5 Hyperlipidemia, unspecified; Z87.891 Personal history of nicotine dependence
CPT/HCPCS: 36415; 71045; 80053; 80061; 82550; 83036; 83735; 83880; 84100; 84443; 84484; 85025; 85347; 85378; 85610; 85730; 93005; 93306; 93454; 96372; 99285; C1725; C1769; C1874; C1887; C1894; C9600; G0378; J1200; J1644; J1650; J2250; J3010; J3490; J7030; Q9967

== ENCOUNTER → 2020-11-13 09:55 | Outpatient (BNVA) | payer OTHER, SELFPAY | PROVIDERS: PCP Nurse Practitioner Family; Visit Provider Nurse Practitioner Family | DX: I25.10 Atherosclerotic heart disease of native coronary artery without angina pectoris (principal); I10 Essential (primary) hypertension; Z95.5 Presence of coronary angioplasty implant and graft | CPT/HCPCS: 80048 ==